=== PATIENT | female | born 1975 | race Caucasian/White ===

== ENCOUNTER 2021-07-04 23:22 | Emergency (ER) | payer OTHER ==
[2021-07-04 23:39] VITALS: BP 153/96; PULSE 89; RESP 16; TEMP 98.1
--- NOTE | 2021-07-04 23:52 | ED ---
General Adult HPI - General Chief complaint: Recheck/Abnormal Lab/Rx Stated complaint: covid swab Source: patient Mode of arrival: ambulatory - History of Present Illness Initial comments: Healthy 45-year-old female presenting to the ER requesting a COVID swab to cross the [place]. Patient is asymptomatic, fully vaccinated has no known contacts with COVID-19 patient's. - Related Data Allergies Allergy/AdvReac Type Severity Reaction Status Date / Time No Known Allergies Allergy Verified 07/04/21 23:39 Review of Systems ROS Statement: Those systems with pertinent positive or pertinent negative responses have been documented in the HPI. ROS Other: All systems not noted in ROS Statement are negative. Past Medical History Past Medical History: No Reported History Past Surgical History: No Surgical Hx Reported Past Psychological History: No Psychological Hx Reported Smoking Status: Never smoker Past Alcohol Use History: Occasional Past Drug Use History: None Reported General Exam - General Exam Comments Initial Comments: Physical Exam GENERAL: Patient is well-developed and well-nourished. Patient is nontoxic and well-hydrated and is in no distress. HENT: Normocephalic, Atraumatic. EYES: PERRL, EOMI PULMONARY: Unlabored respirations. CARDIOVASCULAR: RRR Warm and well perfused extremities ABDOMEN: Non-distended SKIN: No rashes or bruising : Deferred NEUROLOGIC: Alert and oriented Normal speech Normal gait MUSCULOSKELETAL: Moving all extremities with no apparent injury PSYCHIATRIC: No SI/HI Course Vital Signs 07/04/21 23:36 Temperature 98.1 F Pulse Rate 89 Respiratory 16 Rate Blood Pressure 153/96 O2 Sat by Pulse 100 Oximetry Medical Decision Making - Medical Decision Making COVID swab was obtained patient was discharged Disposition Clinical Impression: Encounter for laboratory testing for COVID-19 virus Disposition: HOME SELF-CARE Condition: Stable Is patient prescribed a controlled substance at d/c from ED?: No Referrals: None,Stated [Primary Care Provider] - 1-2 days
== END 2021-07-05 00:55 | disposition home or self-care (01) ==
LOC: EC 23:22
DX: U07.1 COVID-19 (principal)
CPT/HCPCS: 87635; 99282